=== PATIENT | male | born 1995 | race Two or more races ===

== ENCOUNTER 2018-11-06 23:03 | Emergency (ER) | payer MEDICAID ==
[~2018-11-06] VITALS: Ht 177.8 cm; Wt 81.6 kg
[2018-11-07] MEDS ORDERED: SODIUM CHLORIDE 0.9% 1,000 ML IV ONE ×2 (04:15)
[2018-11-07 04:17] LABS: Basophils # (auto) 0.1 uL; Basophils % (auto) 0.6 % (0.0-2.0); Eosinophils # (auto) 0.3 uL; Eosinophils % (auto) 4.1 % (0.0-7.0); Hematocrit 45.7 % (41.0-53.0); Hemoglobin 15.5 g/dL (13.5-17.5); Lymphocytes # (auto) 3.1 uL; Mean Corpuscular Hemoglobin 30.9 pg (28.0-32.0); Mean Corpuscular Hgb Conc. 33.8 g/dL (32.0-36.0); Mean Corpuscular Volume 91.3 fL (80.0-100.0); Monocytes # (auto) 0.7 uL; Monocytes % (auto) 8.5 % (0.0-12.0); Neutrophils # (auto) 4.2 uL; Neutrophils % (auto) 49.8 % (37.0-80.0); Nucleated Red Blood Cells % 0.1 %; Platelet Count (auto) 166 10^3/uL (140-450); Red Cell Distribution Width 13.8 % (11.8-14.3); White Blood Cell 8.3 10^3/uL (4.4-10.8)
[2018-11-07 04:37] LABS: Acetaminophen 4.4 ug/mL (10-30); Albumin 3.4 g/dL (3.4-5.0); Calcium 8.1 mg/dL (8.5-10.1); Potassium 3.8 mmol/L (3.5-5.1); Salicylate < 1.7 mg/dL (2.8-20.0)
[2018-11-07 04:42] LABS: Bilirubin, Total 0.7 mg/dL (0.2-1.0); Total Protein 6.3 g/dL (6.4-8.2)
[2018-11-07 05:31] VITALS: BP 117/69
[2018-11-07] MEDS ORDERED: MULTIPLE VITAMIN 10 ML, MAGNESIUM SULF SDV 50% 8 MEQ, THIAMINE INJ 100 MG in SODIUM CHL... IV SCH (12:00)
== END 2018-11-07 06:04 | disposition home or self-care (01) ==
LOC: EDBD 23:03 → ER 23:08
DX: F10.129 Alcohol abuse with intoxication, unspecified (principal); R51 Headache; R55 Syncope and collapse; R68.84 Jaw pain; Y90.9 Presence of alcohol in blood, level not specified
CPT/HCPCS: 36415; 80053; 80320; 80329; 85025; 93005; 94761; 96361; 96365; 99284; J3411; J3475; J7030

== ENCOUNTER 2019-12-07 12:25 | Emergency (ER) | payer MEDICAID ==
[~2019-12-07] VITALS: Ht 180.3 cm; Wt 81.6 kg
[2019-12-07 12:37] VITALS: BP 124/86
== END 2019-12-07 14:30 | disposition home or self-care (01) ==
LOC: ER 12:25
DX: S92.501A Displaced unspecified fracture of right lesser toe(s), initial encounter for closed fracture (principal); X58.XXXA Exposure to other specified factors, initial encounter; Y93.89 Activity, other specified; Y92.89 Other specified places as the place of occurrence of the external cause; Y99.8 Other external cause status
CPT/HCPCS: 73630; 99283; L3260

== ENCOUNTER 2021-01-12 08:29 | Emergency (ER) | payer MEDICAID ==
[~2021-01-12] VITALS: Ht 180.3 cm; Wt 93.0 kg
[2021-01-12 08:51] VITALS: BP 115/73
[2021-01-12] MEDS ORDERED: IBUPROFEN 800 MG TAB PO ONE (09:15)
== END 2021-01-12 09:21 | disposition home or self-care (01) ==
LOC: ER 08:29
DX: S62.336A Displaced fracture of neck of fifth metacarpal bone, right hand, initial encounter for closed fracture (principal); F17.210 Nicotine dependence, cigarettes, uncomplicated; W22.8XXA Striking against or struck by other objects, initial encounter; Y93.89 Activity, other specified; Y92.89 Other specified places as the place of occurrence of the external cause; Y99.8 Other external cause status
CPT/HCPCS: 29125; 73130

== ENCOUNTER 2021-12-07 11:57 | Emergency (ER) | payer MEDICAID ==
[~2021-12-07] VITALS: Ht 152.4 cm; Wt 90.7 kg
[2021-12-07 11:57] VITALS: BP 132/84
[2021-12-07] MEDS ORDERED: cefTRIAXone SOD 1,000 MG VL ONE (12:41)
[2021-12-07] MEDS ORDERED: cefTRIAXone SOD 1,000 MG VL IM ONE (12:45)
[2021-12-07] MEDS ORDERED: AMOX-277 PO (12:51)
== END 2021-12-07 12:55 | disposition home or self-care (01) ==
LOC: ER 11:57
DX: H66.91 Otitis media, unspecified, right ear (principal); F17.210 Nicotine dependence, cigarettes, uncomplicated; Z79.2 Long term (current) use of antibiotics
CPT/HCPCS: 96372; 99283; J0696

== ENCOUNTER 2022-02-16 14:00 | Emergency (ER) | payer MEDICAID ==
[~2022-02-16 14:00] MED LIST: AMOX-277 PO
== END 2022-02-16 14:25 | disposition left against medical advice (07) ==
LOC: ER 14:00
DX: R55 Syncope and collapse (principal); R42 Dizziness and giddiness; Z53.21 Procedure and treatment not carried out due to patient leaving prior to being seen by health care provider
CPT/HCPCS: 93005

== ENCOUNTER 2023-01-08 13:00 | Emergency (ER) | payer MEDICAID ==
[~2023-01-08] VITALS: Ht 177.8 cm; Wt 76.6 kg
[~2023-01-08 13:00] MED LIST changes: -AMOX-277 PO; +AMOX875T4 PO
[2023-01-08 14:57] LABS: Eosinophils # (auto) 0.1 10 ^3/uL (0-0.8); Hemoglobin 15.3 g/dL (13.5-17.5)
[2023-01-08 15:01] LABS: Basophils # (auto) 0 10 ^3/uL (0-0.2); Basophils % (auto) 0.4 % (0.0-2.0); Eosinophils % (auto) 1.2 % (0.0-7.0); Hematocrit 45.9 % (41.0-53.0); Lymphocytes % (auto) 17.7 % (10.0-50.0); Mean Corpuscular Hemoglobin 30.5 pg (28.0-32.0); Mean Corpuscular Hgb Conc. 33.4 g/dL (32.0-36.0); Mean Corpuscular Volume 91.3 fL (80.0-100.0); Monocytes # (auto) 0.9 10 ^3/uL (0-1.3); Neutrophils # (auto) 8.4 10 ^3/uL (1.6-8.6); Neutrophils % (auto) 72.7 % (37.0-80.0); Nucleated Red Blood Cells % 0.1 %; Red Blood Cells 5.03 10^6/uL (4.5-5.90); White Blood Cell 11.5 10^3/uL (4.4-10.8)
[2023-01-08 15:03] LABS: Urine Bacteria FEW /hpf (None Seen); Urine Blood Negative /uL (Negative); Urine Mucus FEW (None Seen); Urine Specific Gravity 1.027 (1.001-1.035); Urine WBC 3 /hpf (0 - 3)
[2023-01-08 15:26] LABS: Albumin 4.4 g/dL (3.4-5.0); BUN/Creatinine Ratio 13.1 (10.0-20.0); Potassium 3.7 mmol/L (3.5-5.1)
[2023-01-08 15:30] LABS: Bilirubin, Total 1.5 mg/dL (0.2-1.0); Total Protein 7.2 g/dL (6.4-8.2)
[2023-01-08 15:35] LABS: Alcohol, Urine < 3.0 mg/dL (0-10); Amphetamine Screen, Urine NEGATIVE (NEGATIVE); Barbiturate Scree,Urine NEGATIVE (NEGATIVE); Benzodiazephine Screen, Urine NEGATIVE (NEGATIVE); Cocaine Screen, Urine NEGATIVE (NEGATIVE); Opiate Scree,Urine NEGATIVE (NEGATIVE); Phencyclidine Screen, Urine NEGATIVE (NEGATIVE)
[2023-01-08 15:43] LABS: Cannabinoid Screen, Urine POSITIVE (NEGATIVE)
[2023-01-08 16:38] VITALS: BP 120/68
== END 2023-01-08 17:51 | disposition home or self-care (01) ==
LOC: ER 13:00
DX: F41.9 Anxiety disorder, unspecified (principal); F17.210 Nicotine dependence, cigarettes, uncomplicated; F15.90 Other stimulant use, unspecified, uncomplicated
CPT/HCPCS: 36415; 80053; 80307; 81001; 84484; 85025; 93005

== ENCOUNTER 2024-01-27 11:15 | Emergency (ER) | payer MEDICAID ==
[~2024-01-27] VITALS: Ht 177.8 cm; Wt 80.2 kg
[2024-01-27 11:54] VITALS: BP 109/71; PULSE 92; RESP 18; TEMP 97.7; O2SAT 97
== END 2024-01-27 12:27 | disposition home or self-care (01) ==
LOC: ER 11:19
DX: S91.204A Unspecified open wound of right lesser toe(s) with damage to nail, initial encounter (principal); F41.9 Anxiety disorder, unspecified; F17.210 Nicotine dependence, cigarettes, uncomplicated; F15.90 Other stimulant use, unspecified, uncomplicated; Z79.899 Other long term (current) drug therapy; W22.8XXA Striking against or struck by other objects, initial encounter; Y93.89 Activity, other specified; Y92.89 Other specified places as the place of occurrence of the external cause; Y99.8 Other external cause status
CPT/HCPCS: 11730

== ENCOUNTER 2024-02-15 08:32 | Emergency (ER) | payer MEDICAID ==
[~2024-02-15] VITALS: Ht 175.3 cm; Wt 82.8 kg
[2024-02-15 08:43] VITALS: BP 121/71; PULSE 66; RESP 16; O2SAT 98
== END 2024-02-16 09:16 | disposition left against medical advice (07) ==
LOC: ER 08:32
DX: S01.81XA Laceration without foreign body of other part of head, initial encounter (principal); Z53.21 Procedure and treatment not carried out due to patient leaving prior to being seen by health care provider; W22.8XXA Striking against or struck by other objects, initial encounter; Y93.89 Activity, other specified; Y92.89 Other specified places as the place of occurrence of the external cause; Y99.8 Other external cause status

== ENCOUNTER 2024-09-15 10:46 | Emergency (ER) | payer MEDICAID ==
[~2024-09-15] VITALS: Ht 177.8 cm; Wt 90.9 kg
[~2024-09-15 10:46] MED LIST changes: +MECLIZINE HCL 25 MG TAB ONE; +ONDANSETRON ODT 4 MG TAB ONE
--- NOTE | 2024-09-15 11:08 | ECG ---
[facility] Test Date: 2024-09-15 Test Time: 11:07:30 Pat Name: LUNA MORAN Department: ER Room: Gender: M [employer]: PRO : 1995 Requested By: GILLIAN DIAL Order Number: [id number] Reading MD: Measurements Intervals [place] Rate: 71 P: 25 TN: 136 QRS: 81 QRSD: 100 T: 43 QT: 397 QTc: 432 Interpretive Statements Sinus rhythm Please click the below link to view image of tracing.
[2024-09-15 11:15] VITALS: PULSE 65; RESP 20; O2SAT 100
[2024-09-15] MEDS: MECLIZINE HCL 25 MG TAB PO ONE (11:17)
[2024-09-15] MEDS: ONDANSETRON ODT 4 MG TAB PO ONE (11:18)
[2024-09-15 11:33] LABS: Basophils # (auto) 0 10 ^3/uL (0-0.2); Basophils % (auto) 0.5 % (0.0-2.0); Eosinophils # (auto) 0.2 10 ^3/uL (0-0.8); Eosinophils % (auto) 2.3 % (0.0-7.0); Hemoglobin 16.4 g/dL (13.5-17.5); Lymphocytes # (auto) 2.3 10 ^3/uL (0.4-5.4); Lymphocytes % (auto) 33.2 % (10.0-50.0); Mean Corpuscular Hemoglobin 30.3 pg (28.0-32.0); Mean Corpuscular Hgb Conc. 33.3 g/dL (32.0-36.0); Mean Corpuscular Volume 90.9 fL (80.0-100.0); Monocytes # (auto) 0.6 10 ^3/uL (0-1.3); Nucleated Red Blood Cells % 0.1 %; Platelet Count (auto) 214 10^3/uL (140-450); Red Cell Distribution Width 13.2 % (11.8-14.3); White Blood Cell 7.1 10^3/uL (4.4-10.8)
[2024-09-15 11:36] LABS: Anion Gap 7 (5-15); Carbon Dioxide 24 mmol/L (20-31); Potassium 4.4 mmol/L (3.5-5.1); Sodium 141 mmol/L (136-145)
[2024-09-15 11:37] LABS: Calcium 10.2 mg/dL (8.7-10.4)
[2024-09-15 11:42] LABS: BUN/Creatinine Ratio 13.5 (10.0-20.0); Blood Urea Nitrogen 14 mg/dL (9-23); Glucose 98 mg/dL (74-106)
[2024-09-15 11:43] LABS: Chloride 110 mmol/L (98-107)
--- NOTE | 2024-09-15 12:01 | DVH ---
EXAM: CT HEAD WITHOUT CONTRAST INDICATION: Dizzy TECHNIQUE: CT of the head without intravenous contrast. Coronal and sagittal reformatted images are s ubmitted. Radiation Dose : 1. Head: CT Dose: CTDI volume is 63.8 mGy. Dose-length product is 972.2 mGy*cm The dose indicators for CT are the volume Computed Tomography (CT) Dose Index (CTDIvol) and the Dose Length Product (DLP), and are measured in units of mGy and mGy-cm, respectively. These indicators are not patient dose, but values generated from the CT scanner acquisition factors. The report includes radiation exposure data for exposures received during this examination. All CT scans at this medical facility are performed using dose modulation techniques as appropriate to a performed exam including the following: Automated exposure control was utilized; adjustment of the MA and/or KV according to patient size; and use of iterative reconstruction technique. COMPARISON: None FINDINGS: There is no evidence of acute intracranial hemorrhage, extra-axial collection, mass effect, midline s hift, herniation or hydrocephalus. The ventricles, sulci and cisterns are age appropriate. The ybarra-white differentiation is intact. The visualized paranasal sinuses and mastoid air cells are clear. No depressed calvarial fracture. The surrounding soft tissues are unremarkable. IMPRESSION: 1. No evidence of acute intracranial abnormality.
[2024-09-15 12:27] LABS: Urine Bacteria None Seen /hpf (None Seen)
[2024-09-15 12:46] LABS: Urine Blood Negative /uL (Negative); Urine Clarity Clear (Clear); Urine Color Light-Yellow (Yellow); Urine Mucus FEW (None Seen); Urine Protein, UAD Negative (Negative); Urine Squamous Epithelial Cell None Seen /hpf (<5); Urine Urobilinogen Normal (Negative); Urine WBC 1 /HPF (0-3); Urine pH 6.5 (5.0-9.0)
[2024-09-15 13:05] VITALS: BP 101/60; PULSE 76; RESP 17; TEMP 97.4; O2SAT 97
[2024-09-15] MEDS ORDERED: ZOFR4T PO (13:47)
[2024-09-15] MEDS ORDERED: MECL1TAB42 PO (13:47)
--- NOTE | 2024-09-15 13:47 | ED.PDOC ---
History of Present Illness HPI Comments 29-year-old male brought in by friend complaining of dizziness, described as the sensation that he is falling, onset yesterday, worse with head movement, somewhat alleviated by immobilizing himself. He denies any pain, vision changes or focal weakness. He has had some nausea. He also reports a recent history of right lower dental pain and multiple right lower dental procedures. He is currently taking Augmentin for a presumed dental infection. Chief Complaint: Dizziness Time Seen by MD: 11:03 Primary Care Provider: unknown Allergies: Coded Allergies: NO KNOWN ALLERGIES (Unverified , 01/12/21) Home Meds Active Scripts Ondansetron Odt 4MG Tab (ZOFRAN PO) 4 Mg Tb, 4 MG PO TID PRN, #30 TAB prn nausea/vomiting ODT TAB-DISSOLVE IN MOUTH, THEN SWALLOW Prov:GILLIAN VELÁSQUEZ MD 09/15/24 Meclizine HCl (Meclizine 25) 25 Mg Tab, 25 MG PO TID PRN, #30 TAB prn dizziness Prov:GILLIAN VELÁSQUEZ MD 09/15/24 Amoxicillin & Pot Clavulanate (Amoxicillin/Potassium Cla) 875 Mg Tab, 875 MG PO BID, #20 TAB Prov:ERICKA NUGENT 12/07/21 Mode of Arrival: Ambulatory Past Medical History PAST MEDICAL HISTORY: Anxiety Surgical History: Denies all surgeries Family History Family History: Reviewed,noncontributory to illness Social History Smoker: Cigarettes Alcohol: Occasionally Drugs: Marijuana Lives In: Home All Other Systems: Reviewed and Negative (Comprehensive systems review obtained and negative except for what is stated in the HPI.) Physical Exam General Appearance: No Apparent Distress HEENT: PERRL/EOMI, Other (Moist mucous membranes. No facial asymmetry. No jaw tenderness or mastoid tenderness.) Neck: Full Range of Motion, Normal Inspection Respiratory: Lungs Clear, No Accessory Muscle Use, No Respiratory Distress, Normal Breath Sounds Cardiovascular: No Edema, No JVD, Regular Rate/Rhythm Breast Exam: Deferred Gastrointestinal: Non Tender, Soft Genitalia: Deferred Pelvic: Deferred Rectal: Deferred Extremities: Normal inspection, Normal range of motion, Non-tender, No pedal edema Neurologic: Alert (Oriented x4), feeder driver II-XII nml as Tested, No Motor Deficits, Normal Affect, Normal Mood, No Sensory Deficits, Other (Ambulatory. No gross focal deficit. Head movement reproduces dizziness symptoms.) Cerebellar Function: NOT DONE Reflexes: NOT DONE Skin: Dry, Normal Color, Warm Lymphatic: NOT DONE Was a procedure done? Was a procedure done?: No EKG EKG : Comments Sinus rhythm, rate 71, normal intervals, normal axis, normal QRS, no ST/T changes. Differential Dx Considerations may include: Positional vertigo, CVA, TIA, hypovolemia/orthostasis, anemia, electrolyte imbalance, intracranial mass lesion, among others X-Ray, Labs, Meds, VS Vital Signs Date Time Temp Pulse Resp B/P (MAP) Pulse Ox O2 Delivery O2 Flow Rate FiO2 09/15/24 13:05 97.4 76 17 101/60 (74) 97 97.4 09/15/24 11:15 65 20 100 Room Air* 0 21 09/15/24 11:15 98.2 65 19 128/65 (86) 100 98.2 09/15/24 11:07 71 09/15/24 10:57 98.0 80 16 133/91 (105) 98 Lab Test 09/15/24 12:42 09/15/24 11:16 09/15/24 10:56 Range/Units Troponin I High Sensitivity < 3 L < 3 L </=54 ng/L White Blood Count 7.1 4.4-10.8 10^3/uL Red Blood Count 5.40 4.5-5.90 10^6/uL Hemoglobin 16.4 13.5-17.5 g/dL Hematocrit 49.0 41.0-53.0 % Mean Corpuscular Volume 90.9 80.0-100.0 fL Mean Corpuscular Hemoglobin 30.3 28.0-32.0 pg Mean Corpuscular Hemoglobin Concent 33.3 32.0-36.0 g/dL Red Cell Distribution Width 13.2 11.8-14.3 % Platelet Count 214 140-450 10^3/uL Mean Platelet Volume 9.3 6.9-10.8 fL Neutrophils (%) (Auto) 56.0 37.0-80.0 % Lymphocytes (%) (Auto) 33.2 10.0-50.0 % Monocytes (%) (Auto) 8.0 0.0-12.0 % Eosinophils (%) (Auto) 2.3 0.0-7.0 % Basophils (%) (Auto) 0.5 0.0-2.0 % Neutrophils # (Auto) 4.0 1.6-8.6 10 ^3/uL Lymphocytes # (Auto) 2.3 0.4-5.4 10 ^3/uL Monocytes # (Auto) 0.6 0-1.3 10 ^3/uL Eosinophils # (Auto) 0.2 0-0.8 10 ^3/uL Basophils # (Auto) 0 0-0.2 10 ^3/uL Nucleated Red Blood Cells 0.1 % Sodium Level 141 136-145 mmol/L Potassium Level 4.4 3.5-5.1 mmol/L Chloride Level 110 H 98-107 mmol/L Carbon Dioxide Level 24 20-31 mmol/L Anion Gap 7 5-15 Blood Urea Nitrogen 14 9-23 mg/dL Creatinine 1.04 0.700-1.30 mg/dL Glomerular Filtration Rate Calc 101 >90 mL/min BUN/Creatinine Ratio 13.5 10.0-20.0 Serum Glucose 98 74-106 mg/dL Calcium Level 10.2 8.7-10.4 mg/dL B-Type Natriuretic Peptide 2.42 0-100 pg/mL Urine Color Light-yellow Yellow Urine Clarity Clear Clear Urine pH 6.5 5.0-9.0 Urine Specific [place] 1.020 1.001-1.035 Urine Protein Negative Negative Urine Ketones Trace Negative Urine Blood Negative Negative /uL Urine Nitrite Negative Negative Urine Bilirubin Negative Negative Urine Urobilinogen Normal Negative mg/dL Urine Leukocyte Esterase Negative Negative /uL Urine RBC <1 0 - 3 /hpf Urine Microscopic WBC 1 0-3 /HPF Urine Squamous Epithelial Cells None seen <5 /hpf Urine Bacteria None seen None Seen /hpf Urine Mucus Few None Seen Urine Glucose Normal Normal mg/dL Current Medications Medications (Trade) Dose Ordered Sig/Sudarshan Route Start Time Stop Time Status Last Admin Meclizine HCl (Antivert Tablet) 50 mg ONCE ONCE PO 09/15/24 11:15 09/15/24 11:16 DC 09/15/24 11:17 Ondansetron HCl (Zofran Po) 4 mg ONCE ONCE PO 09/15/24 11:15 09/15/24 11:16 DC 09/15/24 11:18 PROCEDURE(s): HWOCT - HEAD WITHOUT CONTRAST REASON: dizzy ORDER NUMBER(s): [id number], ACCESSION NUMBER(s): [id number] EXAM: CT HEAD WITHOUT CONTRAST INDICATION: Dizzy TECHNIQUE: CT of the head without intravenous contrast. Coronal and sagittal reformatted images are submitted. Radiation Dose : 1. Head: CT Dose: CTDI volume is 63.8 mGy. Dose-length product is 972.2 mGy*cm The dose indicators for CT are the volume Computed Tomography (CT) Dose Index (CTDIvol) and the Dose Length Product (DLP), and are measured in units of mGy and mGy-cm, respectively. These indicators are not patient dose, but values generated from the CT scanner acquisition factors. The report includes radiation exposure data for exposures received during this examination. All CT scans at this medical facility are performed using dose modulation techniques as appropriate to a performed exam including the following: Automated exposure control was utilized; adjustment of the MA and/or KV according to patient size; and use of iterative reconstruction technique. COMPARISON: None FINDINGS: There is no evidence of acute intracranial hemorrhage, extra-axial collection, mass effect, midline shift, herniation or hydrocephalus. The ventricles, sulci and cisterns are age appropriate. The ybarra-white differentiation is intact. The visualized paranasal sinuses and mastoid air cells are clear. No depressed calvarial fracture. The surrounding soft tissues are unremarkable. IMPRESSION: 1. No evidence of acute intracranial abnormality. X-Ray, Labs, Meds, VS Comment 29-year-old male with a history of anxiety complaining of dizziness Vitals remarkable for BP 133/91 Exam remarkable for reproducible dizziness symptoms with the head movement Rhythm strip independently interpreted by me: Sinus rhythm, rate 71, no ectopy. Head CT unremarkable CBC, basic metabolic panel, BNP, 2 serial troponins and UA unremarkable for any abnormality of acute significance Patient treated with the following in the ED: Meclizine 50 mg p.o., Zofran ODT 4 mg p.o. with improvement of his symptoms On re-evaluation, symptoms have improved, vitals were stable, patient has no focal neurologic deficit. Patient appears stable for discharge with close outpatient follow-up with his primary physician. Rx meclizine, Zofran Time of 1ST Reevaluation: 13:45 Reevaluation 1ST: Improved Patient Education/Counseling: Diagnosis, Treatment, Need For Follow Up Family Education/Counseling: No Family Present Departure 1 Departure Time of Disposition: 13:45 Impression: Primary Impression: Positional vertigo Disposition: 01 HOME / SELF CARE / HOMELESS Condition: Stable Additional Instructions: Your blood tests, including screening test for heart attack and heart failure, were unremarkable. Your urine test was unremarkable. Your EKG was normal. Your head CT was normal. I have prescribed medication for your symptoms. Follow-up with your primary doctor in 1-2 days. Return to ER for persistent or worsening symptoms. [place] [id number] Ph: [phone] DIAGNOSTIC IMAGING Diagnostic Imaging Report : [id number] Signed PATIENT: LUNA MORAN ACCT: [id number] UNIT: [id number] : 1995 LOC: ER ROOM / BED: / AGE / SEX: 29 / M ADM STATUS: REG ER SERVICE 1103 ORDERING PHYSICIAN: GILLIAN VELÁSQUEZ MD PROCEDURE(s): HWOCT - HEAD WITHOUT CONTRAST REASON: dizzy ORDER NUMBER(s): [id number], ACCESSION NUMBER(s): [id number] EXAM: CT HEAD WITHOUT CONTRAST INDICATION: Dizzy TECHNIQUE: CT of the head without intravenous contrast. Coronal and sagittal reformatted images are submitted. Radiation Dose : 1. Head: CT Dose: CTDI volume is 63.8 mGy. Dose-length product is 972.2 mGy*cm The dose indicators for CT are the volume Computed Tomography (CT) Dose Index (CTDIvol) and the Dose Length Product (DLP), and are measured in units of mGy and mGy-cm, respectively. These indicators are not patient dose, but values generated from the CT scanner acquisition factors. The report includes radiation exposure data for exposures received during this examination. All CT scans at this medical facility are performed using dose modulation techniques as appropriate to a performed exam including the following: Automated exposure control was utilized; adjustment of the MA and/or KV according to patient size; and use of iterative reconstruction technique. COMPARISON: None FINDINGS: There is no evidence of acute intracranial hemorrhage, extra-axial collection, mass effect, midline shift, herniation or hydrocephalus. The ventricles, sulci and cisterns are age appropriate. The ybarra-white differentiation is intact. The visualized paranasal sinuses and mastoid air cells are clear. No depressed calvarial fracture. The surrounding soft tissues are unremarkable. IMPRESSION: 1. No evidence of acute intracranial abnormality. ATED BY: JOSELIN ORTIZ MD DICTATED DATE/TIME: 09/15/24 1159 e-Prescriptions Ondansetron Odt 4MG Tab (ZOFRAN PO) 4 Mg Tb 4 MG PO TID PRN, #30 TAB prn nausea/vomiting ODT TAB-DISSOLVE IN MOUTH, THEN SWALLOW Prov: GILLIAN VELÁSQUEZ MD 09/15/24 Meclizine HCl (Meclizine 25) 25 Mg Tab 25 MG PO TID PRN, #30 TAB prn dizziness Prov: GILLIAN VELÁSQUEZ MD 09/15/24 Discharged With: Friend Critical Care Note Critical Care Time?: No Stability Stability form required: No Heart Score Heart Score: Heart Score Response (Comments) Value History N/A 0 EKG N/A 0 Age N/A 0 Risk Factors N/A 0 Troponin N/A 0 Total 0 GILLIAN VELÁSQUEZ MD Sep 15, 2024 13:47
== END 2024-09-15 14:03 | disposition home or self-care (01) ==
LOC: ER 10:46
DX: H81.10 Benign paroxysmal vertigo, unspecified ear (principal); F17.210 Nicotine dependence, cigarettes, uncomplicated; F41.9 Anxiety disorder, unspecified; R06.02 Shortness of breath; Z79.899 Other long term (current) drug therapy
CPT/HCPCS: 36415; 70450; 80048; 81001; 83880; 84484; 85025; 93005; Q0162

== ENCOUNTER 2024-11-23 15:06 | Emergency (ER) | payer MEDICAID ==
[~2024-11-23] VITALS: Ht 180.3 cm; Wt 91.1 kg
[~2024-11-23 15:06] MED LIST changes: +MECL1TAB42 PO; -MECLIZINE HCL 25 MG TAB ONE; -ONDANSETRON ODT 4 MG TAB ONE; +ZOFR4T PO
[2024-11-23 15:59] VITALS: BP 126/81; PULSE 99; RESP 18; TEMP 97.9; O2SAT 97
--- NOTE | 2024-11-23 15:59 | DVH ---
CLINICAL INDICATION: INJURY TECHNIQUE: 3 radiographic views of the left ankle were obtained. Comparison: None FINDINGS/IMPRESSION: There is no evidence of acute fracture or dislocation. The visualized joint space is well maintained. The alignment is anatomical. There is no radiopaque foreign body.
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
[2024-11-23] MEDS ORDERED: IBUP-1456 PO (16:21)
[2024-11-23] MEDS ORDERED: CEPH500C PO (16:21)
--- NOTE | 2024-11-23 16:28 | DVH ---
CLINICAL INDICATION: INJURY TECHNIQUE: 2 radiographic views of the left foot were obtained. Comparison: None FINDINGS/IMPRESSION: There is no evidence of acute fracture or dislocation. The visualized joint space is well maintained. The alignment is anatomical. There is no radiopaque foreign body.
== END 2024-11-23 16:46 | disposition home or self-care (01) ==
LOC: ER 15:06
DX: S93.402A Sprain of unspecified ligament of left ankle, initial encounter (principal); S90.812A Abrasion, left foot, initial encounter; F41.9 Anxiety disorder, unspecified; F12.90 Cannabis use, unspecified, uncomplicated; F17.210 Nicotine dependence, cigarettes, uncomplicated; W19.XXXA Unspecified fall, initial encounter; Y93.89 Activity, other specified; Y92.89 Other specified places as the place of occurrence of the external cause; Y99.8 Other external cause status
CPT/HCPCS: 73610; 73620

== ENCOUNTER 2025-05-17 05:54 | Emergency (ER) | payer MEDICAID ==
[~2025-05-17] VITALS: Ht 177.8 cm; Wt 97.2 kg
[~2025-05-17 05:54] MED LIST changes: +CEPH500C PO; +IBUP-1456 PO
[2025-05-17 05:55] VITALS: BP 145/95; PULSE 80; RESP 17; TEMP 97.3; O2SAT 98
--- NOTE | 2025-05-17 06:49 | ED.PDOC ---
Eye-HPI HPI Comments 30 y.o male presents to the ED for a chief complaint of tooth pain that started one day ago Patient presents with right bottom first molar pain radiating up to his jaw and right ear, associated with redness, nausea and vomiting present this morning. Patient was seen previously and diagnosed with a tooth infection in which he was given antibiotics which he has not finished. He took about 16 ibuprofen tablets since yesterday but had no pain relief. Patient has been seen by multiple dentist who suggested his tooth to be extracted however states it is too expensive for him to get the procedure done. He states pain is usually manageable up until last night when severity arise. He denies any fever, chills or any other symptoms at this time. Chief Complaint: Tooth Pain Time Seen by MD: 06:37 Primary Care Provider: UNKNOWN Reviewed Notes: Nurses Notes, Medications, Allergies Allergies: Coded Allergies: NO KNOWN ALLERGIES (Unverified , 01/12/21) Home Meds Active Scripts Amoxicillin Trihydrate (Amoxicillin) 500 Mg Cap, 500 MG PO TID for 7 Days, #21 CAP Prov:ORESTES PABON MD 05/17/25 Hydrocodone-Acetaminophen (Hydrocodone Bitartrate/AC 10-325 mg) 1 Tab Tab, 1 TAB PO Q6HP PRN, #12 TAB Prov:ORESTES PABON MD 05/17/25 Ibuprofen (Ibuprofen) 800 Mg Tab, 1 TAB PO TID, #30 TAB Prov:ERICKA NUGENT 11/23/24 Cephalexin Monohydrate (Cephalexin) 500 Mg Cap, 1 CAP PO QID, #40 CAP Prov:ERICKA NUGENT 11/23/24 Ondansetron Odt 4MG Tab (ZOFRAN PO) 4 Mg Tb, 4 MG PO TID PRN, #30 TAB prn nausea/vomiting ODT TAB-DISSOLVE IN MOUTH, THEN SWALLOW Prov:GILLIAN VELÁSQUEZ MD 09/15/24 Meclizine HCl (Meclizine 25) 25 Mg Tab, 25 MG PO TID PRN, #30 TAB prn dizziness Prov:GILLIAN VELÁSQUEZ MD 09/15/24 Amoxicillin & Pot Clavulanate (Amoxicillin/Potassium Cla) 875 Mg Tab, 875 MG PO BID, #20 TAB Prov:ERICKA NUGENT 12/07/21 Information Source: Patient Mode of Arrival: Ambulatory Timing: Days (2) Duration: Since onset Quality: Pain Associated signs and symptoms: Tooth Pain Past Medical History PAST MEDICAL HISTORY: Anxiety Surgical History: Denies all surgeries Family History Family History: Reviewed,noncontributory to illness Social History Smoker: Cigarettes Alcohol: Occasionally Drugs: Marijuana Lives In: Home Constitutional: denies: chills, diaphoresis, fatigue, fever, malaise, sweats, weakness, others EENTM: reports: others (left tooth pain ); denies: blurred vision, double vision, ear bleeding, ear discharge, ear drainage, ear pain, ear ringing, eye p ain, eye redness, hearing loss, mouth pain, mouth swelling, nasal discharge, nose bleeding, nose congestion, nose pain, photophobia, tearing, throat pain, throat swelling, voice changes Respiratory: denies: cough, hemoptysis, orthopnea, SOB at rest, shortness of breath, SOB with excertion, stridor, wheezing, others Cardiovascular: denies: chest pain, dizzy spells, diaphoresis, Dyspnea on exertion, edema, irregular heart beat, left arm pain, lightheadedness, palpit ations, PND, syncope, others Gastrointestinal: denies: abdomen distended, abdominal pain, blood streaked b owels, constipated, diarrhea, dysphagia, difficulty swallowing, hematemesis, melena, nausea, poor appetite, poor fluid intake, rectal bleeding, rectal pain, vomiting, others Genitourinary: denies: burning, dysuria, flank pain, frequency, hematuria, incontinence, penile discharge, penile sore, pain, testicle pain, testicle swelling, urgency, others Neurological: denies: dizziness, fainting, headache, left sided numbness, left sided weakness, numbness, paresthesia, pre-existing deficit, right sided numbness, right sided weakness, seizure, speech problems, tingling, tremors, weakness, others Musculoskeletal: denies: back pain, gout, joint pain, joint swelling, muscle pain, muscle stiffness, neck pain, others Integumetry: denies: bruises, change in color, change in hair/nails, dryness, laceration, lesions, lumps, rash, wounds, others Allergic/Immunocompromised: denies: Difficulty Healing, Frequent Infections, Hives, Itching, others Hematologic/Lymphatic: denies: anemia, blood clots, easy bleeding, easy bruisi ng, swollen glands, others Endocrine: denies: excessive hunger, excessive sweating, excessive thirst, exce ssive urination, flushing, intolerance to cold, intolerance to heat, unexplained weight gain, unexplained weight loss, others Psychiatric: denies: anxiety, bipolar disorder, depression, hopeless, panic disorder, schizophrenia, sleepless, suicidal, others All Other Systems: Reviewed and Negative Physical Exam General Appearance: Moderate Distress HEENT: Other (Cracked tooth to the bottom left 1st molar. No abscess palpated. No purulent discharge. No facial swelling) Neck: Full Range of Motion, Non-Tender, Normal, Normal Inspection Respiratory: Chest Non-Tender, Lungs Clear, No Accessory Muscle Use, No Respiratory Distress, Normal Breath Sounds Cardiovascular: No Edema, No JVD, No Murmur, No Gallop, Normal Peripheral Pu lses, Regular Rate/Rhythm Breast Exam: Deferred Gastrointestinal: No Organomegaly, Non Tender, No Pulsatile Mass, Normal Bowel Sounds, Soft Genitalia: Deferred Pelvic: Deferred Rectal: Deferred Extremities: No calf tenderness, Normal capillary refill, Normal inspection, Normal range of motion, Non-tender, No pedal edema Musculoskeletal : Apperance: Normal Neurologic: Alert, eight section blower II-XII nml as Tested, No Motor Deficits, Normal Affect, Normal Mood, No Sensory Deficits Cerebellar Function: Normal Reflexes: Normal Skin: Dry, Normal Color, Warm Lymphatic: No Adenopathy Was a procedure done? Was a procedure done?: No EENT DIFF Eye: N/A Ear: Dental Other Differential Diagnosis Tooth abscess, tooth pain, tooth infection, gingivitis, otitis media X-Ray, Labs, Meds, VS Vital Signs Date Time Temp Pulse Resp B/P (MAP) Pulse Ox O2 Delivery O2 Flow Rate FiO2 05/17/25 05:55 Room Air 05/17/25 05:55 97.3 80 17 145/95 98 97.3 22-year-old male presents here with left lower 1st molar pain. The tooth has been cracked for several years. He states however last night he began to have onset of pain. He was prescribed antibiotics awhile ago but did not finish the course. He did take 1 dose of antibiotic yesterday. He has been taking ibuprofen significant doses to help with the pain. He states the pain radiates to his ER. At this time there was no abscess. Vitals are stable. Hurricaine spray has been applied and additionally I have given him [place] 10 in the ER. I have prescribed him amoxicillin and [place] for home. Low-cost dentist options has been discussed. I have given him resources for [facility] and other local clinics in the area. Advised him to return if symptoms worsen or persist. Time of 1ST Reevaluation: 06:58 Reevaluation 1ST: Improved Patient Education/Counseling: Diagnosis, Treatment, Prognosis Family Education/Counseling: No Family Present SEPSIS Sepsis Screen Date sepsis recognized/suspect: May 17, 2025 Time Sepsis recognized/suspect: 557 Recent Procedure: No On Antibiotic Therapy: Yes Respiratory Rate >20: No Heart Rate >90: No Temp<36 C (96.8 F) or >38.3 C: No SBP <90 or MAP <65 mmHG: No New Acute Mental Status Change: No Is the patient on CPAP, BIPAP,: No Physician Orders Benzocaine (Dental) [place] (Hurricaine Sp (05/17/25 07:00) Hydrocodone-Acet 10/325mg Tab ([place] 10/ (05/17/25 07:00) Vital Signs Date Time Temp Pulse Resp B/P (MAP) Pulse Ox O2 Delivery O2 Flow Rate FiO2 05/17/25 05:55 Room Air 05/17/25 05:55 97.3 80 17 145/95 98 97.3 Departure 1 Departure Time of Disposition: 06:57 Impression: Primary Impression: Infected tooth Disposition: 01 HOME / SELF CARE / HOMELESS Condition: Stable e-Prescriptions Amoxicillin Trihydrate (Amoxicillin) 500 Mg Cap 500 MG PO TID for 7 Days, #21 CAP Prov: ORESTES PABON MD 05/17/25 Hydrocodone-Acetaminophen (Hydrocodone Bitartrate/AC 10-325 mg) 1 Tab Tab 1 TAB PO Q6HP PRN, #12 TAB Prov: ORESTES PABON MD 05/17/25 Critical Care Note Critical Care Time?: No Stability Stability form required: No Heart Score Heart Score: Heart Score Response (Comments) Value History N/A 0 EKG N/A 0 Age N/A 0 Risk Factors N/A 0 Troponin N/A 0 Total 0 I personally scribed for ORESTES PABON MD ([email or web address]) on 05/17/25 at 06:49. Electronically submitted by Jessie Braswell ([facility]). ORESTES PABON MD May 17, 2025 06:49
[2025-05-17] MEDS ORDERED: AMOX500C2 PO (06:55)
[2025-05-17] MEDS ORDERED: HYDR-4798 PO (06:55)
[2025-05-17] MEDS: BENZOCAINE (DENTAL) 20 % SPRAY 60ML MT ONE (07:06)
[2025-05-17] MEDS: HYDROcodone-ACET 10/325MG TAB PO ONE (07:06)
== END 2025-05-17 07:10 | disposition home or self-care (01) ==
LOC: ER 05:54
DX: K04.7 Periapical abscess without sinus (principal); F41.9 Anxiety disorder, unspecified; F17.210 Nicotine dependence, cigarettes, uncomplicated